=== PATIENT | male | born 1950 | race Two or more races ===

== ENCOUNTER → 2018-08-09 | Outpatient (CLI) | payer MEDICARE ==
--- NOTE | 2018-08-09 13:20 | RAD ---
EXAMINATION: Magnetic resonance imaging (MRI) of the lumbar spine without contrast 08/09/2018 1:00 PM HISTORY: Low back pain with bilateral leg radiculopathy for 4 years TECHNIQUE: Multiplanar multi-weighted MRI of the lumbar spine was performed without intravenous contrast using the standard lumbar spine protocol. Contrast information: None administered. COMPARISON: None available. FINDINGS: There is grade 1 anterolisthesis of L4 on L5. Vertebral body heights are maintained. Marrow signal intensity is normal on all sequences with exception of mild Modic type I endplate degenerative changes at L4-L5. Is moderate disc height loss at L4-L5 and mild to moderate disc height loss at L5-S1 with vacuum disc phenomena. Conus medullaris terminates at L1. Distal spinal cord signal intensity is normal in all sequences. There is disc desiccation at all levels of lumbar spine. Abdominal aorta is normal in caliber. No suspicious retroperitoneal abnormality is identified. There is a simple appearing cyst in the left kidney measuring 2.1 cm. L2-L3: There is a mild disc bulge. There is a central disc protrusion. Mild facet arthropathy. There is mild bilateral neuroforaminal stenosis. Mild spinal canal stenosis. L3-L4: There is mild disc bulge asymmetric to the left with central annular fissure. Mild facet arthropathy. There is moderate left and mild right neuroforaminal stenosis. Mild spinal canal stenosis. L4-L5: There is a moderate disc bulge asymmetric to the right. Severe facet arthropathy. There is moderate right and moderate to severe left neuroforaminal stenosis. There is moderate spinal canal stenosis. There is right lateral recess stenosis secondary to facet arthropathy. L5-S1: There is mild disc bulge asymmetric to the right. There is mild to moderate facet arthropathy. There is mild bilateral neuroforaminal stenosis. No spinal canal stenosis. IMPRESSION: There is grade 1 anterolisthesis of L4 on L5 with moderate disc height loss, vacuum disc phenomenon and disc desiccation. Disc bulge and facet arthropathy resulting in moderate spinal canal stenosis and right lateral recess stenosis. Electronically signed by: Emiliana Ralph MD (08/09/2018 1:17 PM) [id number]
== END | disposition home or self-care (01) ==
LOC: MRI 11:44
PROVIDERS: ATTEND Internal Medicine
DX: M48.061 Spinal stenosis, lumbar region without neurogenic claudication (principal); M47.26 Other spondylosis with radiculopathy, lumbar region; M12.88 Other specific arthropathies, not elsewhere classified, other specified site; M51.86 Other intervertebral disc disorders, lumbar region
CPT/HCPCS: 72148